=== PATIENT | male | born 1960 | race Caucasian/White ===

== ENCOUNTER → 2019-09-07 | Outpatient (CLI) | payer OTHER | END | disposition home or self-care (01) | LOC: US 17:00 | DX: I65.23 Occlusion and stenosis of bilateral carotid arteries (principal); E11.9 Type 2 diabetes mellitus without complications; I10 Essential (primary) hypertension ==

== ENCOUNTER → 2025-06-17 | Day surgery (SDC) | payer OTHER ==
[~2025-06-17] VITALS: Ht 177.8 cm; Wt 86.2 kg
[~2025-06-17] MED LIST: AMLODIPINE BESY10 MG PO; COMBIGAN 0.2%-010 ML OP; Dexamethasone Sodium Phospha 4 MG/ML VIAL IV ONE; IRBESARTAN75 M1 PO; JARDIANCE25 MG PO; LIPITOR20 MG PO; Lactated Ringer's Solution 1,000 ML IV ONE; Lidocaine Hydrochloride 2% 5 ML SDV IM ONE; Midazolam Hydrochloride 2 MG/2 ML VIAL IV ONE; Ondansetron Hydrochloride 4 MG/2 ML VIAL IV ONE; PERCOCET 5-3251 EACH PO; PROPOFOL 200 MG/20 ML VIAL IV ONE; SEVOFLURANE 250 ML BOT INH ONE; TRAVATAN 0.0042.5 M1 INTRAOC; ceFAZolin sodium/sodium chlor 0 ML IV ONE
[2025-06-17 07:00] VITALS: BP 142/78
[2025-06-17 08:58] VITALS: BP 125/77
[2025-06-17 09:13] VITALS: BP 111/54
[2025-06-17 09:32] VITALS: BP 135/74
== END | disposition home or self-care (01) ==
LOC: SDC 05-31 10:15
PROVIDERS: ATTEND Surgery
DX: K40.90 Unilateral inguinal hernia, without obstruction or gangrene, not specified as recurrent (principal); E11.9 Type 2 diabetes mellitus without complications; E78.00 Pure hypercholesterolemia, unspecified; I10 Essential (primary) hypertension; H40.9 Unspecified glaucoma; K21.9 Gastro-esophageal reflux disease without esophagitis; Z87.891 Personal history of nicotine dependence; Z79.899 Other long term (current) drug therapy; Z88.8 Allergy status to other drugs, medicaments and biological substances; Z98.890 Other specified postprocedural states